=== PATIENT | male | born 1960 | race Caucasian/White ===

== ENCOUNTER 2017-07-15 08:15 | Emergency (ER) | payer OTHER ==
[~2017-07-15] VITALS: Ht 177.8 cm; Wt 140.6 kg
[2017-07-15] MEDS ORDERED: AMLO5 PO (08:55)
[2017-07-15] MEDS ORDERED: FURO20 PO (08:55)
[2017-07-15] MEDS ORDERED: METO25ER PO (08:55)
[2017-07-15] MEDS ORDERED: ASPI81CH PO (08:56)
[2017-07-15] MEDS ORDERED: FURO40 PO (08:56)
[2017-07-15] MEDS ORDERED: SIMV40 PO (08:56)
[2017-07-15] MEDS ORDERED: PRAVASTATIN SOD10 MG PO (08:56)
[2017-07-15] MEDS ORDERED: POTCHL20ER PO (08:57)
[2017-07-15] MEDS ORDERED: Norco 5-325 Ta1 EACH PO (11:27)
[2017-07-15] MEDS ORDERED: IBUP800 PO (11:27)
[2017-07-15] MEDS ORDERED: Robaxin-750750 MG PO (11:27)
== END 2017-07-15 11:41 | disposition home or self-care (01) ==
LOC: ER 08:15
DX: M54.5 Low back pain (principal); R07.81 Pleurodynia; M25.511 Pain in right shoulder; M25.512 Pain in left shoulder; I10 Essential (primary) hypertension; E78.5 Hyperlipidemia, unspecified; E66.01 Morbid (severe) obesity due to excess calories; Z68.41 Body mass index [BMI] 40.0-44.9, adult
CPT/HCPCS: 71101; 72040; 72100; 96372; 99284; J1170; J1885

== ENCOUNTER → 2017-09-11 | Outpatient (CLI) | payer OTHER ==
[~2017-09-11] MED LIST: AMLO5 PO; ASPI81CH PO; FURO20 PO; FURO40 PO; IBUP800 PO; METO25ER PO; Norco 5-325 Ta1 EACH PO; POTCHL20ER PO; PRAVASTATIN SOD10 MG PO; Robaxin-750750 MG PO; SIMV40 PO
[2017-09-11 17:45] LABS: BASOPHILS ABSOLUTE AUTO 0.06 K/mm3 (0.00-0.23); BASOPHILS PERCENT AUTO 1 % (0-2); EOSINOPHILS ABSOLUTE AUTO 0.18 K/mm3 (0.00-0.68); EOSINOPHILS PERCENT AUTO 2 % (0-6); IMMATURE GRAN ABSOLUTE AUTO 0.04 K/mm3 (0.00-0.10); IMMATURE GRAN PERCENT AUTO 0 % (0-1); LYMPHOCYTES ABSOLUTE AUTO 1.51 K/mm3 (0.84-5.20); LYMPHOCYTES PERCENT AUTO 15 % (21-46); MONOCYTES ABSOLUTE AUTO 0.71 K/mm3 (0.16-1.47); MONOCYTES PERCENT AUTO 7 % (4-13); Mean Corpuscular HGB 30.4 pg (26.0-34.0); Mean Corpuscular HGB Conc 35.7 g/dL (31.5-36.5); Mean Corpuscular Volume 85 fL (80-100); Mean Platelet Volume 9.9 fL (9.1-12.4); NEUTROPHILS ABSOLUTE AUTO 7.49 K/mm3 (1.96-9.15); NEUTROPHILS PERCENT AUTO 75 % (41-73); Platelet Count 221 K/mm3 (150-400); RDW Coefficient Variation 13.5 % (11.7-14.2); RDW Standard Deviation 41.3 fL (35.1-46.3); Red Blood Cell Count 4.94 M/mm3 (4.30-5.90); White Blood Cell Count 9.99 K/mm3 (4.00-11.30)
[2017-09-11 17:54] LABS: Alanine Aminotransfer (ALT/SGP 29 U/L (12-78); Albumin, Blood 3.9 g/dL (3.4-5.0); Albumin/Globulin Ratio 0.9 (0.8-1.8); Alk Phos 106 U/L (40-126); Anion Gap 10 mmol/L (6-16); Aspartate Aminotrans (AST/SGOT 22 U/L (12-37); Bilirubin, Total 0.5 mg/dL (0.1-1.0); Blood Urea Nitrogen 21 mg/dL (8-24); Bun/Creatinine Ratio 19.8 (12.0-20.0); CO2, Blood 31 mmol/L (21-32); Calcium, Blood 9.2 mg/dL (8.5-10.1); Chloride, Blood 99 mmol/L (98-108); Creatinine, Blood 1.06 mg/dL (0.60-1.20); Globulin, Blood 4.2 g/dL (2.2-4.0); Glomerular Filtration Rate >60 (60-); Glucose, Blood 99 mg/dL (70-99); Sodium, Blood 140 mmol/L (136-145); Total Protein, Blood 8.1 g/dL (6.4-8.2)
== END ==
LOC: LAB EV 17:38 → LAB SHORT 17:38
PROVIDERS: Physician Assistant Medical
DX: L03.119 Cellulitis of unspecified part of limb (principal)
CPT/HCPCS: 80053; 85025

== ENCOUNTER → 2017-09-12 | Outpatient (CLI) | payer OTHER ==
[2017-09-12 14:05] LABS: Anion Gap 11 mmol/L (6-16); Blood Urea Nitrogen 17 mg/dL (8-24); CO2, Blood 30 mmol/L (21-32); Calcium, Blood 9.4 mg/dL (8.5-10.1); Chloride, Blood 99 mmol/L (98-108); Creatinine, Blood 0.85 mg/dL (0.60-1.20); Glomerular Filtration Rate >60 (60-); Glucose, Blood 108 mg/dL (70-99); Potassium, Blood 3.2 mmol/L (3.5-5.5); Sodium, Blood 140 mmol/L (136-145)
== END ==
LOC: LAB EV 13:55 → LAB SHORT 13:55
PROVIDERS: Physician Assistant Surgical
DX: E87.6 Hypokalemia (principal)
CPT/HCPCS: 80048

== ENCOUNTER → 2017-09-13 | Outpatient (CLI) | payer OTHER ==
[2017-09-13 13:58] LABS: BASOPHILS ABSOLUTE AUTO 0.06 K/mm3 (0.00-0.23); BASOPHILS PERCENT AUTO 1 % (0-2); EOSINOPHILS ABSOLUTE AUTO 0.22 K/mm3 (0.00-0.68); EOSINOPHILS PERCENT AUTO 4 % (0-6); Hematocrit 38.7 % (37.0-53.0); Hemoglobin 13.5 g/dL (13.5-17.5); IMMATURE GRAN ABSOLUTE AUTO 0.02 K/mm3 (0.00-0.10); IMMATURE GRAN PERCENT AUTO 0 % (0-1); LYMPHOCYTES ABSOLUTE AUTO 1.43 K/mm3 (0.84-5.20); LYMPHOCYTES PERCENT AUTO 23 % (21-46); MONOCYTES PERCENT AUTO 10 % (4-13); Mean Corpuscular HGB 29.9 pg (26.0-34.0); Mean Corpuscular HGB Conc 34.9 g/dL (31.5-36.5); Mean Corpuscular Volume 86 fL (80-100); Mean Platelet Volume 9.8 fL (9.1-12.4); NEUTROPHILS ABSOLUTE AUTO 3.89 K/mm3 (1.96-9.15); NEUTROPHILS PERCENT AUTO 63 % (41-73); Platelet Count 207 K/mm3 (150-400); RDW Coefficient Variation 13.3 % (11.7-14.2); RDW Standard Deviation 41.3 fL (35.1-46.3); Red Blood Cell Count 4.51 M/mm3 (4.30-5.90); White Blood Cell Count 6.22 K/mm3 (4.00-11.30)
[2017-09-13 14:46] LABS: Anion Gap 9 mmol/L (6-16); Blood Urea Nitrogen 15 mg/dL (8-24); Bun/Creatinine Ratio 16.5 (12.0-20.0); CO2, Blood 31 mmol/L (21-32); Chloride, Blood 99 mmol/L (98-108); Creatinine, Blood 0.91 mg/dL (0.60-1.20); Glomerular Filtration Rate >60 (60-); Glucose, Blood 93 mg/dL (70-99); Potassium, Blood 3.3 mmol/L (3.5-5.5); Sodium, Blood 139 mmol/L (136-145)
== END ==
LOC: LAB SHORT 13:50 → LAB EV 13:50
PROVIDERS: Physician Assistant Surgical
DX: L03.119 Cellulitis of unspecified part of limb (principal)
CPT/HCPCS: 80048; 85025

== ENCOUNTER → 2018-06-09 | Outpatient (CLI) | payer SELFPAY ==
[2018-06-09 17:05] LABS: BASOPHILS ABSOLUTE AUTO 0.04 K/mm3 (0.00-0.23); BASOPHILS PERCENT AUTO 1 % (0-2); EOSINOPHILS ABSOLUTE AUTO 0.25 K/mm3 (0.00-0.68); EOSINOPHILS PERCENT AUTO 3 % (0-6); Hematocrit 35.9 % (37.0-53.0); Hemoglobin 12.6 g/dL (13.5-17.5); IMMATURE GRAN ABSOLUTE AUTO 0.02 K/mm3 (0.00-0.10); IMMATURE GRAN PERCENT AUTO 0 % (0-1); LYMPHOCYTES ABSOLUTE AUTO 1.23 K/mm3 (0.84-5.20); LYMPHOCYTES PERCENT AUTO 17 % (21-46); MONOCYTES ABSOLUTE AUTO 0.63 K/mm3 (0.16-1.47); MONOCYTES PERCENT AUTO 8 % (4-13); Mean Corpuscular HGB 30.1 pg (26.0-34.0); Mean Corpuscular HGB Conc 35.1 g/dL (31.5-36.5); Mean Corpuscular Volume 86 fL (80-100); NEUTROPHILS ABSOLUTE AUTO 5.29 K/mm3 (1.96-9.15); NEUTROPHILS PERCENT AUTO 71 % (41-73); RDW Coefficient Variation 13.5 % (11.7-14.2); Red Blood Cell Count 4.19 M/mm3 (4.30-5.90); White Blood Cell Count 7.46 K/mm3 (4.00-11.30)
[2018-06-09 17:13] LABS: Mean Platelet Volume 9.4 fL (9.1-12.4); Platelet Count 131 K/mm3 (150-400)
[2018-06-09 17:41] LABS: Alanine Aminotransfer (ALT/SGP 27 U/L (12-78); Albumin, Blood 3.3 g/dL (3.4-5.0); Albumin/Globulin Ratio 0.9 (0.8-1.8); Alk Phos 87 U/L (40-126); Anion Gap 8 mmol/L (6-16); Aspartate Aminotrans (AST/SGOT 21 U/L (12-37); Bilirubin, Total 0.5 mg/dL (0.1-1.0); Blood Urea Nitrogen 15 mg/dL (8-24); Bun/Creatinine Ratio 17.4 (12.0-20.0); CO2, Blood 29 mmol/L (21-32); Calcium, Blood 8.8 mg/dL (8.5-10.1); Chloride, Blood 100 mmol/L (98-108); Creatinine, Blood 0.86 mg/dL (0.60-1.20); Globulin, Blood 3.7 g/dL (2.2-4.0); Glomerular Filtration Rate >60 (60-); Glucose, Blood 114 mg/dL (70-99); Sodium, Blood 137 mmol/L (136-145)
== END ==
LOC: LAB EV 16:37 → LAB SHORT 16:37
PROVIDERS: Emergency Medicine
DX: L03.116 Cellulitis of left lower limb (principal)
CPT/HCPCS: 80053; 83605; 85025; 87040

== ENCOUNTER → 2018-09-04 | Outpatient (CLI) | payer SELFPAY ==
[2018-09-04 10:33] LABS: BASOPHILS ABSOLUTE AUTO 0.05 K/mm3 (0.00-0.23); BASOPHILS PERCENT AUTO 1 % (0-2); EOSINOPHILS ABSOLUTE AUTO 0.37 K/mm3 (0.00-0.68); EOSINOPHILS PERCENT AUTO 6 % (0-6); Hemoglobin 15.1 g/dL (13.5-17.5); IMMATURE GRAN ABSOLUTE AUTO 0.02 K/mm3 (0.00-0.10); IMMATURE GRAN PERCENT AUTO 0 % (0-1); LYMPHOCYTES ABSOLUTE AUTO 1.49 K/mm3 (0.84-5.20); LYMPHOCYTES PERCENT AUTO 23 % (21-46); MONOCYTES ABSOLUTE AUTO 0.48 K/mm3 (0.16-1.47); MONOCYTES PERCENT AUTO 7 % (4-13); Mean Corpuscular HGB 29.4 pg (26.0-34.0); Mean Corpuscular HGB Conc 35.1 g/dL (31.5-36.5); Mean Corpuscular Volume 84 fL (80-100); Mean Platelet Volume 9.9 fL (9.1-12.4); NEUTROPHILS ABSOLUTE AUTO 4.04 K/mm3 (1.96-9.15); NEUTROPHILS PERCENT AUTO 63 % (41-73); Platelet Count 242 K/mm3 (150-400); RDW Coefficient Variation 13.9 % (11.7-14.2); RDW Standard Deviation 42.2 fL (35.1-46.3); Red Blood Cell Count 5.13 M/mm3 (4.30-5.90); White Blood Cell Count 6.45 K/mm3 (4.00-11.30)
[2018-09-04 10:42] LABS: Alanine Aminotransfer (ALT/SGP 34 U/L (12-78); Albumin/Globulin Ratio 1.1 (0.8-1.8); Alk Phos 95 U/L (40-126); Anion Gap 9 mmol/L (6-16); Aspartate Aminotrans (AST/SGOT 21 U/L (12-37); Bilirubin, Total 0.4 mg/dL (0.1-1.0); Blood Urea Nitrogen 16 mg/dL (8-24); Bun/Creatinine Ratio 17.2 (12.0-20.0); CO2, Blood 29 mmol/L (21-32); Calcium, Blood 9.2 mg/dL (8.5-10.1); Chloride, Blood 100 mmol/L (98-108); Creatinine, Blood 0.93 mg/dL (0.60-1.20); Globulin, Blood 3.6 g/dL (2.2-4.0); Glomerular Filtration Rate >60 (60-); Glucose, Blood 101 mg/dL (70-99); Potassium, Blood 3.7 mmol/L (3.5-5.5); Sodium, Blood 138 mmol/L (136-145); Total Protein, Blood 7.6 g/dL (6.4-8.2)
== END | disposition home or self-care (01) ==
LOC: LAB EV 10:18 → LAB SHORT 10:18
PROVIDERS: General Practice
DX: T78.3XXA Angioneurotic edema, initial encounter (principal)
CPT/HCPCS: 80053; 85025

== ENCOUNTER 2020-11-12 17:03 | Emergency (ER) | payer OTHER ==
[~2020-11-12] VITALS: Ht 177.8 cm; Wt 142.9 kg
[2020-11-12] MEDS ORDERED: CEPH500 PO (18:34)
== END 2020-11-12 19:01 | disposition home or self-care (01) ==
LOC: ER 17:03
DX: L03.116 Cellulitis of left lower limb (principal); I10 Essential (primary) hypertension; E78.5 Hyperlipidemia, unspecified; Z79.82 Long term (current) use of aspirin; Z79.899 Other long term (current) drug therapy
CPT/HCPCS: 93971; 99283-25; A9270

== ENCOUNTER 2020-12-14 22:47 | Emergency (ER) | payer OTHER ==
[~2020-12-14] VITALS: Ht 177.8 cm; Wt 145.2 kg
[~2020-12-14 22:47] MED LIST changes: +CEPH500 PO
[2020-12-15 03:36] LABS: BASOPHILS ABSOLUTE AUTO 0.06 K/mm3 (0.00-0.23); BASOPHILS PERCENT AUTO 1 % (0-2); EOSINOPHILS ABSOLUTE AUTO 0.31 K/mm3 (0.00-0.68); EOSINOPHILS PERCENT AUTO 3 % (0-6); Hematocrit 40.7 % (37.0-53.0); IMMATURE GRAN ABSOLUTE AUTO 0.05 K/mm3 (0.00-0.10); IMMATURE GRAN PERCENT AUTO 0 % (0-1); LYMPHOCYTES ABSOLUTE AUTO 1.44 K/mm3 (0.84-5.20); LYMPHOCYTES PERCENT AUTO 12 % (21-46); MONOCYTES ABSOLUTE AUTO 0.82 K/mm3 (0.16-1.47); MONOCYTES PERCENT AUTO 7 % (4-13); Mean Corpuscular HGB Conc 34.4 g/dL (31.5-36.5); Mean Corpuscular Volume 90 fL (80-100); Mean Platelet Volume 9.1 fL (9.1-12.4); NEUTROPHILS ABSOLUTE AUTO 9.05 K/mm3 (1.96-9.15); NEUTROPHILS PERCENT AUTO 77 % (41-73); Platelet Count 189 K/mm3 (150-400); RDW Coefficient Variation 13.2 % (11.7-14.2); RDW Standard Deviation 43.5 fL (35.1-46.3); Red Blood Cell Count 4.51 M/mm3 (4.30-5.90); White Blood Cell Count 11.73 K/mm3 (4.00-11.30)
[2020-12-15 03:55] LABS: Anion Gap 6 mmol/L (6-16); Blood Urea Nitrogen 27 mg/dL (8-24); Bun/Creatinine Ratio 24.1 (12.0-20.0); CO2, Blood 23 mmol/L (21-32); Calcium, Blood 8.9 mg/dL (8.5-10.1); Chloride, Blood 106 mmol/L (98-108); Creatinine, Blood 1.12 mg/dL (0.60-1.20); Glomerular Filtration Rate >60 (60-); Glucose, Blood 114 mg/dL (70-99); Potassium, Blood 4.2 mmol/L (3.5-5.5); Sodium, Blood 135 mmol/L (136-145)
[2020-12-15] MEDS ORDERED: CEPH500 PO (04:15)
== END 2020-12-15 04:27 | disposition home or self-care (01) ==
LOC: ER 22:47
PROVIDERS: Emergency Medicine
DX: L03.116 Cellulitis of left lower limb (principal); I10 Essential (primary) hypertension; E78.5 Hyperlipidemia, unspecified; Z79.82 Long term (current) use of aspirin; Z79.899 Other long term (current) drug therapy
CPT/HCPCS: 36415; 80048; 83605; 85025; 96365; 99283; A9270; J0690

== ENCOUNTER 2021-05-01 08:55 | Emergency (ER) | payer OTHER ==
[~2021-05-01] VITALS: Ht 177.8 cm; Wt 147.4 kg
[2021-05-01] MEDS ORDERED: CEPH500 PO (09:27)
== END 2021-05-01 09:44 | disposition home or self-care (01) ==
LOC: ER 08:55
DX: L03.116 Cellulitis of left lower limb (principal); L40.9 Psoriasis, unspecified; I10 Essential (primary) hypertension; E78.5 Hyperlipidemia, unspecified; Z79.82 Long term (current) use of aspirin; Z79.899 Other long term (current) drug therapy
CPT/HCPCS: 99283; A9270

== ENCOUNTER → 2022-07-31 | Outpatient (CLI) | payer OTHER | END | disposition home or self-care (01) | LOC: LAB SHORT 13:07 → LAB 13:07 | DX: L08.0 Pyoderma (principal) | CPT/HCPCS: 87070; 87205 ==

== ENCOUNTER 2024-06-20 19:11 | Emergency (ER) | payer OTHER ==
[~2024-06-20] VITALS: Ht 177.8 cm; Wt 145.2 kg
[2024-06-20 19:31] VITALS: BP 185/105
[2024-06-20] MEDS ORDERED: Ketorolac Tromethamine 30mg Vial IM ONE (19:40)
[2024-06-20] MEDS ORDERED: Methocarbamol 500 MG Tab PO ONE (19:40)
[2024-06-20] MEDS ORDERED: Methyl Salicylate/Menth/Camph 57 GM TUBE TOP ONE (19:45)
[2024-06-20] MEDS ORDERED: TROLAMINE SALICYLATE 10% CREAM 141 GM TUBE TOP ONE (19:50)
== END 2024-06-20 20:40 | disposition home or self-care (01) ==
LOC: ER 19:11
DX: M54.50 Low back pain, unspecified (principal); G89.29 Other chronic pain; Z79.899 Other long term (current) drug therapy; Z79.82 Long term (current) use of aspirin; I10 Essential (primary) hypertension; E78.5 Hyperlipidemia, unspecified
CPT/HCPCS: 96374; 99283-25; A9270; J1885

== ENCOUNTER 2025-04-04 16:10 | Emergency (ER) | payer OTHER ==
[~2025-04-04] VITALS: Ht 188 cm; Wt 147.4 kg
[2025-04-04 16:24] VITALS: BP 160/100
[2025-04-04 17:01] LABS: BASOPHILS ABSOLUTE AUTO 0.06 K/mm3 (0.00-0.23); BASOPHILS PERCENT AUTO 1 % (0-2); EOSINOPHILS ABSOLUTE AUTO 0.29 K/mm3 (0.00-0.68); EOSINOPHILS PERCENT AUTO 4 % (0-6); Hematocrit 41.5 % (37.0-53.0); Hemoglobin 14.3 g/dL (13.5-17.5); IMMATURE GRAN ABSOLUTE AUTO 0.02 K/mm3 (0.00-0.10); IMMATURE GRAN PERCENT AUTO 0 % (0-1); LYMPHOCYTES ABSOLUTE AUTO 1.51 K/mm3 (0.84-5.20); LYMPHOCYTES PERCENT AUTO 20 % (21-46); MONOCYTES ABSOLUTE AUTO 0.75 K/mm3 (0.16-1.47); MONOCYTES PERCENT AUTO 10 % (4-13); Mean Corpuscular HGB Conc 34.5 g/dL (31.5-36.5); Mean Corpuscular Volume 86 fL (80-100); NEUTROPHILS ABSOLUTE AUTO 4.85 K/mm3 (1.96-9.15); NEUTROPHILS PERCENT AUTO 65 % (41-73); NRBC ABSOLUTE 0.00 K/mm3 (0.00-0.02); NRBC Auto 0.0 /100 WBC (0.0-0.2); Platelet Count 213 K/mm3 (150-400); RDW Coefficient Variation 13.4 % (11.7-14.2); RDW Standard Deviation 41.4 fL (35.1-46.3)
[2025-04-04 17:05] LABS: Alanine Aminotransfer (ALT/SGP 31.0 U/L (12-78); Albumin, Blood 3.4 g/dL (3.4-5.0); Albumin/Globulin Ratio 0.9 (0.8-1.8); Anion Gap 8.0 mmol/L (3-11); Aspartate Aminotrans (AST/SGOT 22.0 U/L (12-37); Bilirubin, Total 0.5 mg/dL (0.1-1.0); Blood Urea Nitrogen 19.0 mg/dL (8-24); CO2, Blood 27.0 mmol/L (21-32); Calcium, Blood 9.5 mg/dL (8.5-10.1); Chloride, Blood 100.0 mmol/L (98-108); Creatinine, Blood 1.03 mg/dL (0.60-1.20); Globulin, Blood 3.8 g/dL (2.2-4.0); Glucose, Blood 114.0 mg/dL (70-99); Potassium, Blood 4.1 mmol/L (3.5-5.5); Sodium, Blood 131.0 mmol/L (136-145); Total Protein, Blood 7.2 g/dL (6.4-8.2)
[2025-04-04] MEDS ORDERED: AMLODIPINE BESYL5 MG PO (17:38)
[2025-04-04] MEDS ORDERED: TREMFYA100 MG/11 SQ (17:40)
[2025-04-04] MEDS ORDERED: HYDCHL25 (17:41)
[2025-04-04] MEDS ORDERED: Ketorolac Tromethamine 30mg Vial IV ONE (18:00)
[2025-04-04 18:05] LABS: Source, Urine Clean Catch
[2025-04-04] MEDS ORDERED: Lidocaine 4% 1 Patch TOP ONE (18:05)
[2025-04-04 18:10] LABS: Bilirubin, Urine Neg (Neg); Color, Urine Yellow (P-Yellow); Glucose Qualitative, Urine Neg (Neg); Ketones, Urine Neg (Neg); Leukocyte Esterase, Urine Neg (Neg); Protein, Urine Neg (Neg); Specific Gravity, Urine 1.015 (1.003-1.022); Urobilinogen, Urine NORM (Normal)
[2025-04-04] MEDS ORDERED: LIDO700A20 TOP (20:24)
[2025-04-04] MEDS ORDERED: CYCL10 PO (20:24)
== END 2025-04-04 20:30 | disposition home or self-care (01) ==
LOC: ER 16:10
PROVIDERS: Student in an Organized Health Care Education/Training Program
DX: S23.3XXA Sprain of ligaments of thoracic spine, initial encounter (principal); S29.012A Strain of muscle and tendon of back wall of thorax, initial encounter; X58.XXXA Exposure to other specified factors, initial encounter; I10 Essential (primary) hypertension; E78.5 Hyperlipidemia, unspecified; Z79.82 Long term (current) use of aspirin; Z79.899 Other long term (current) drug therapy
CPT/HCPCS: 71046; 76705; 80053; 81003; 83690; 84484; 85025; 93005; 93010; 96374; 99284-25; A9270; J1885